=== PATIENT | female | born 1980 | race Caucasian/White ===

== ENCOUNTER → 2019-07-03 | Outpatient (CLI) | payer OTHER ==
--- NOTE | 2019-07-05 08:16 | REP ---
MRI THORACIC SPINE WITHOUT CONTRAST: 07/03/2019. CLINICAL HISTORY: Thoracic back pain she states previous T7-T8 abnormality described as "tumor". I do not have any prior studies available at this time. She reports pain with numbness and radiation down both legs. TECHNIQUE: A marker placed at the T5-6 level as seen on ophthalmic medical technologist sagittal view with sagittal T1, T2 images and axial T1- and T2 sequences through the thoracic spine. A normal gentle kyphosis noted. No scoliosis. Vertebral body heights are maintained throughout. Disc space height is narrowed at T7-8 compared to the other levels. There is some disc water maintained at most levels except for T7-8. There is no vertebral compression deformity of destructive lesion. At T1-2 through T4-5 , there is no disc bulge herniation and no spinal or foraminal stenosis. There is a small hemangioma inferior aspect of T4. T5-6 and T6-7 disc spaces show no spinal or foraminal stenosis. At T7-8, there is a central and left paracentral disc protrusion. Some extrusion of disc material and migration above the disc level behind the T7 vertebral body. This abuts and indents the ventral cord surface centrally and slightly towards the left of midline at the T7-8 level. Protrusion is 8 mm in transverse diameter and nearly 10 mm in vertical diameter with some extruded material extending upward behind T7 vertebral body and deep to the cord. The 2.9 mm thickness of this disc protrusion and extrusion noted. At T8-9 through T12-L1 levels show no disc bulge herniation and no spinal or foraminal stenosis. There is no intrinsic cord signal abnormality. I do not see paraspinal mass or tumor. IMPRESSION: 1. An 8 mm x 10 x 2.9 mm central left paracentral disc protrusion with some extruded disc material at the T7-8 level extending upward behind T7 and deep to the cord. This indents the ventral cord surface at this level. There is no foraminal encroachment. The cross-sectional area of the canal was adequate. 2. All other levels in the thoracic spine were unremarkable. Neurosurgical referral strongly recommended. Electronically Signed by Prashant Negron MD 07/05/2019 09:36 A
== END ==
LOC: M RAD 13:19
PROVIDERS: ATTEND Registered Nurse
DX: M51.24 Other intervertebral disc displacement, thoracic region (principal); D18.09 Hemangioma of other sites

== ENCOUNTER → 2023-02-19 | Outpatient (REF) | payer OTHER, MEDICARE | LOC: M LAB REF 16:58 | PROVIDERS: ATTEND Ophthalmology | DX: H16.0 Corneal ulcer (principal) ==

== ENCOUNTER → 2024-08-18 | Outpatient (REF) | payer OTHER, MEDICARE ==
[2024-08-21 13:01] LABS: HPV APTIMA Not Detected (Not Detected)
== END ==
LOC: M SFHCWAGY 17:43
PROVIDERS: ATTEND Nurse Practitioner Family
DX: Z12.72 Encounter for screening for malignant neoplasm of vagina (principal); Z11.51 Encounter for screening for human papillomavirus (HPV)
CPT/HCPCS: 87624; G0123